=== PATIENT | male | born 1950 | race Caucasian/White ===

== ENCOUNTER 2023-06-05 09:08 | Emergency (ER) | payer MEDICARE, SELFPAY ==
--- NOTE | ~2023-06-05 | XR_ITS ---
EXAMINATION: XR abdomen/kub 1V DATE: 06/05/2023 09:39 INDICATION: Swallowed dental instrument TECHNIQUE: A supine view of the abdomen and pelvis was obtained. COMPARISON: None. FINDINGS: The uppermost abdomen is excluded from the [id number]. There is an approximately 1 cm metallic for eign body projecting over the region of the cecum in the right lower quadrant. Normal bowel gas patte rn. Several phleboliths in the pelvis. 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 Left total hip arthroplasty. Mild to moderate right hip osteoarthritis. IMPRESSION: 1. 1 cm metallic foreign body projecting over the region of the cecum. Reviewed, dictated and finalized at location A.
--- NOTE | 2023-06-05 09:12 | ED.GENADULT ---
HPI - General Adult General Chief complaint: Unspecified Stated complaint: Swallowed Foreign Object Time Seen by Provider: 06/05/23 09:33 Mode of arrival: ambulatory Limitations: no limitations History of Present Illness HPI narrative: 73-year-old male presents with concern for foreign body. Reports he went to the dentist yesterday around 5:00 p.m. and foreign body was either aspirated or swallowed. His dentist suggested he come in for an x-ray. He denies any coughing, shortness of breath, chest pain. He denies abdominal pain, bloody stools. He reports his last bowel movement was yesterday before the dentist. complaint: Foreign body Related Data Home Medications Medication Instructions Recorded Confirmed azelastine 205.5 mcg (0.15 %) 2 spray intranasal DAILY 04/27/23 06/05/23 nasal spray ([facility]) Allergies Allergy/AdvReac Type Severity Reaction Status Date / Time No Known Allergies Allergy Verified 06/05/23 09:25 Review of Systems Review of Systems: CONSTITUTIONAL: Denies malaise, chills, sweats, or fever. CARDIOVASCULAR: Denies chest pain, palpitations, or edema. RESPIRATORY: Denies cough or dyspnea. GASTROINTESTINAL: Denies abdominal pain, nausea, vomiting, diarrhea, bloody, or mucous stools. All systems reviewed & are unremarkable except as noted in HPI and below PMFSH Past Medical History Medical History Body mass index [BMI] 29.0-29.9, adult (05/29/17) Body mass index [BMI] 30.0-30.9, adult (01/29/17) Body mass index [BMI] 31.0-31.9, adult Chronic frontal sinusitis Erectile dysfunction Hammer toe of right foot Hx of tinnitus Hyperglycemia Irritant contact dermatitis due to detergent Left shoulder pain Palpitations Shortness of breath Skin yeast infection Strain of muscle(s) and tendon(s) of the rotator cuff of left shoulder, subsequent encounter URI with cough and congestion Vitamin D deficiency disease Family History Family History Father Family history of Alzheimer's disease, Onset Age: 86 Sibling Family history of malignant neoplasm of breast in first degree relative Mother Family history of heart disease in male family member before age 55 Family history of congestive heart failure, Onset Age: 87 Other Family history of cardiovascular disease Social History Social History Smoking status: Former smoker Smoking end date: 08/20/94 Alcohol intake: current Lack of Transportation: No Lack of Food: Never True Current Housing: I Have Housing Concerned About Future Housing: No Difficulty Paying Gas/Electric Bills: No Difficulty Paying for Meds: No Currently Unemployed: No Education: Bachelor's Degree Difficulty w/ Childcare or Family Care: No Comments At time of signature, agree with nursing past medical, surgical, social and family history. There is no relevant family history pertinent to the presenting complaint Exam Narrative: GENERAL: Well-appearing, well-nourished, and in no acute distress. HEAD: Normocephalic, atraumatic. EYES: PERRLA, sclera clear ENT: Nares clear. Mucous membranes moist. NECK: Supple. CHEST: No respiratory distress. Clear to auscultation. No bony deformities, no asymmetry. Speaks in full sentences. HEART: Regular rate and rhythm. ABDOMEN: Soft, nontender, nondistended, normal active bowel sounds, no palpable masses. EXTREMITIES: Normal range of motion. SKIN: Warm, dry, no visible rash. NEURO: Alert and oriented x3. PSYCH: Normal mood and affect Course Course Emergency Course: Patient is aware of diagnosis, understands and agrees to treatment plan. Anticipatory guidance given. Patient agrees to follow-up as directed and is aware of reasons to seek care at the emergency department. Portions of this record may have
[2023-06-05 09:21] VITALS: BP 152/97; PULSE 66; RESP 16; TEMP 36.5; O2SAT 99
== END 2023-06-05 09:52 | disposition home or self-care (01) ==
PROVIDERS: Emergency Provider Nurse Practitioner; PCP Emergency Medicine
DX: T18.3XXA Foreign body in small intestine, initial encounter (principal); Z87.891 Personal history of nicotine dependence; W44.E9XA Other non-magnetic metal objects entering into or through a natural orifice, initial encounter
CPT/HCPCS: 74018; 99213; G0463